=== PATIENT | female | born 1980 | race Caucasian/White ===

== ENCOUNTER 2021-11-05 06:01 | Day surgery (SDC) | payer OTHER | END 2021-11-05 17:15 | disposition home or self-care (01) | LOC: CIR.AMB 06:01 | PROVIDERS: ATTEND Obstetrics & Gynecology | DX: N84.0 Polyp of corpus uteri (principal); Z71.6 Tobacco abuse counseling; F17.210 Nicotine dependence, cigarettes, uncomplicated ==

== ENCOUNTER 2021-11-13 20:51 | Emergency (ER) | payer OTHER ==
[~2021-11-13] VITALS: Ht 170.2 cm; Wt 68.0 kg
[2021-11-14] MEDS ORDERED: KETO10TA2 PO (03:08)
== END 2021-11-14 03:18 ==
LOC: ER 20:51
DX: R10.2 Pelvic and perineal pain (principal)

== ENCOUNTER 2024-11-22 07:00 | Day surgery (SDC) | payer OTHER ==
[2024-11-17 12:49] VITALS: BP 150/90
[~2024-11-22] VITALS: Ht 170.2 cm; Wt 61.2 kg
[~2024-11-22 07:00] MED LIST: KETO10TA2 PO
[2024-11-22] MEDS ORDERED: ONDANSETRON HCL 2 MG/ML VIAL IV ONE (09:15)
[2024-11-22] MEDS ORDERED: KETOROLAC TROMETHAMINE 30 MG VIAL IV ONE (09:15)
[2024-11-22] MEDS ORDERED: CHLORHEXIDINE GLUCONATE 120 ML BOTTLE TOP ONE (09:45)
[2024-11-22] MEDS ORDERED: POVIDONE-IODINE 118 ML BOTT TOP ONE (09:45)
[2024-11-22] MEDS ORDERED: MORPHINE SULFATE 4 MG/ML VIAL IV ONE (13:40)
== END 2024-11-22 15:50 | disposition home or self-care (01) ==
LOC: CIR.AMB 07:00
PROVIDERS: ATTEND Obstetrics & Gynecology
DX: N84.0 Polyp of corpus uteri (principal); N93.8 Other specified abnormal uterine and vaginal bleeding